=== PATIENT | female | born 2005 ===

== ENCOUNTER 2023-04-29 22:29 | Observation (INO) | payer OTHER ==
[~2023-04-29] VITALS: Ht 154.9 cm; Wt 79.4 kg
[2023-04-29] MEDS ORDERED: PREN-96 PO (23:58)
[2023-04-29] MEDS ORDERED: LYSI600T PO (23:59)
== END 2023-04-30 00:12 | disposition home or self-care (01) ==
LOC: LDRP 22:29
PROVIDERS: ADMIT Obstetrics & Gynecology; ATTEND Obstetrics & Gynecology
DX: O36.8130 Decreased fetal movements, third trimester, not applicable or unspecified (principal); O26.893 Other specified pregnancy related conditions, third trimester; N89.8 Other specified noninflammatory disorders of vagina; Z3A.39 39 weeks gestation of pregnancy
CPT/HCPCS: 59025; 76818; 81002; G0378

== ENCOUNTER 2023-05-05 04:49 | Inpatient (IN) | payer OTHER ==
[~2023-05-05] VITALS: Ht 154.9 cm; Wt 80.3 kg
[~2023-05-05 04:49] MED LIST: LYSI600T PO; PREN-96 PO
[2023-05-05] MEDS ORDERED: PROMETHAZINE HCL 25 MG/ML 1ML IV PRN (05:15)
[2023-05-05] MEDS ORDERED: WITCH HAZEL-GLYCERIN PAD TOP PRN (05:15)
[2023-05-05] MEDS ORDERED: PROMETHAZINE HCL 25 MG/ML 1ML IM PRN (05:15)
[2023-05-05] MEDS ORDERED: LIDOCAINE 2%HCL (LOCAL ANESTH.) INJ 20ML MDV IJ PRN (05:15)
[2023-05-05] MEDS ORDERED: DERMOPLAST 60ML BOTTLE TOP PRN (05:15)
[2023-05-05] MEDS ORDERED: PHISODERM TOP SOLN 240ML BTL TOP PRN (05:15)
[2023-05-05 06:03] LABS: Basophils # (auto) 0 10 ^3/uL (0-0.2); Basophils % (auto) 0.2 % (0.0-2.0); Eosinophils # (auto) 0.1 10 ^3/uL (0-0.8); Eosinophils % (auto) 1.1 % (0.0-7.0); Hematocrit 35.3 % (36.0-46.0); Hemoglobin 11.8 g/dL (12.2-16.2); Lymphocytes # (auto) 3.1 10 ^3/uL (0.4-5.4); Lymphocytes % (auto) 27.3 % (10.0-50.0); Mean Corpuscular Hgb Conc. 33.4 g/dL (32.0-36.0); Mean Corpuscular Volume 89.9 fL (80.0-100.0); Monocytes # (auto) 0.9 10 ^3/uL (0-1.3); Monocytes % (auto) 8.2 % (0.0-12.0); Neutrophils # (auto) 7.3 10 ^3/uL (1.6-8.6); Neutrophils % (auto) 63.2 % (37.0-80.0); Nucleated Red Blood Cells % 0.1 %; Red Blood Cells 3.93 10^6/uL (4.0-5.20); Red Cell Distribution Width 13.7 % (11.8-14.3); White Blood Cell 11.5 10^3/uL (4.4-10.8)
[2023-05-05 06:13] LABS: Urine Bacteria FEW /hpf (None Seen); Urine Blood Negative /uL (Negative); Urine Clarity Clear (Clear); Urine Color Colorless (Yellow); Urine Hyaline Cast FEW /lpf (0 - 2); Urine Protein, UAD Negative (Negative); Urine Specific Gravity 1.008 (1.001-1.035); Urine Urobilinogen Normal (Negative); Urine WBC 1 /hpf (0 - 5); Urine pH 6.5 (5.0-8.0)
[2023-05-05 06:25] LABS: Amphetamine Screen, Urine Neg (NEGATIVE); Barbiturate Scree,Urine Neg (NEGATIVE); Benzodiazephine Screen, Urine Neg (NEGATIVE)
[2023-05-05 06:26] LABS: Cannabinoid Screen, Urine Neg (NEGATIVE); Cocaine Screen, Urine Neg (NEGATIVE); Opiate Scree,Urine Neg (NEGATIVE); Phencyclidine Screen, Urine Neg (NEGATIVE)
[2023-05-05 06:27] LABS: INR 0.88 (0.9-1.15); Prothrombin Time 9.3 sec (9.3-11.8)
[2023-05-05 06:28] LABS: Alanine Aminotransferase 10 U/L (7-40); Albumin 3.8 g/dL (3.2-4.8); Alkaline Phosphatase 224 U/L (46-116); Anion Gap 7 (5-15); Aspartate Aminotransferase 13 U/L (13-40); Bilirubin, Total 0.4 mg/dL (0.2-1.0); Blood Urea Nitrogen 7 mg/dL (9-23); Calcium 9.2 mg/dL (8.7-10.4); Carbon Dioxide 25 mmol/L (20-30); Chloride 104 mmol/L (98-107); Glucose 106 mg/dL (74-106); Potassium 3.7 mmol/L (3.5-5.1); Sodium 136 mmol/L (136-145); Total Protein 6.1 g/dL (5.7-8.2)
[2023-05-05] MEDS: miSOPROStol 50 MCG per PRE-CUT 1/2 TAB PO PRN ×3 (07:18→15:25)
[2023-05-05] MEDS: LACTATED RINGER'S 1,000 ML IV SCH ×4 (07:20→23:10)
[2023-05-05] MEDS ORDERED: NALOXONE HCL 0.4 MG/ML VIAL IV ONE (18:15)
[2023-05-05] MEDS ORDERED: ePHEDrine SULFATE 50 MG/ML AMP IV ONE (18:15)
[2023-05-05] MEDS ORDERED: ROPIVACAINE HCL 100 ML ONE (18:19)
[2023-05-05] MEDS ORDERED: ePHEDrine SULFATE 50 MG/ML AMP ONE (18:42)
[2023-05-05] MEDS ORDERED: LACT. RINGERS/OXYTOCIN 20UNITS 1,000 ML IV SCH (21:00)
[2023-05-05] MEDS ORDERED: TERBUTALINE SULFATE 1 MG/ML 1ML VIAL SC PRN (21:00)
[2023-05-06] MEDS ORDERED: ROPIVACAINE HCL 100 ML ONE (03:42)
[2023-05-06] MEDS ORDERED: ceFAZolin 1GM/50ML 50 ML IV SCH (05:00)
[2023-05-06] MEDS ORDERED: SODIUM CHLORIDE 0.9% 200 ML IUPC ONE (05:45)
[2023-05-06] MEDS ORDERED: SODIUM CHLORIDE 0.9% 1,000 ML IUPC SCH (05:45)
[2023-05-06] MEDS ORDERED: LACT. RINGERS/OXYTOCIN 20UNITS 500 ML IV ONE ×2 (07:00→07:30)
[2023-05-06 07:08] LABS: RPR Non Reactive (Non Reactive)
[2023-05-06] MEDS ORDERED: MINERAL OIL TOPICAL 10ml TOP ONE ×2 (07:19→07:20)
[2023-05-06] MEDS ORDERED: METHYLERGONOVINE MALEATE 0.2 MG/ML AMP IM ONE (08:21)
[2023-05-06] MEDS ORDERED: ONDANSETRON ODT 4 MG TAB PO PRN (09:15)
[2023-05-06] MEDS ORDERED: ACETAMINOPHEN 325 MG TAB PO PRN (09:15)
[2023-05-06 10:30] VITALS: RESP 16; O2SAT 99
[2023-05-06] MEDS: IBUPROFEN 600 MG TAB PO PRN ×2 (10:38→18:31)
[2023-05-06 11:03] VITALS: BP 111/66; PULSE 89; TEMP 98.3; O2SAT 99
[2023-05-06 14:54] VITALS: BP 114/53; PULSE 99; RESP 16; TEMP 98.1; O2SAT 99
[2023-05-06 19:00] VITALS: BP 109/63; PULSE 100; RESP 20; TEMP 98
[2023-05-06] MEDS ORDERED: DOCUSATE SOD 100 MG CAP PO SCH (22:00)
[2023-05-06 23:30] VITALS: BP 110/59; PULSE 102; RESP 20; TEMP 98.3
[2023-05-07 03:16] VITALS: BP 118/59; PULSE 99; RESP 16; TEMP 98.3
[2023-05-07 06:54] VITALS: BP 102/54; PULSE 93; RESP 16; TEMP 98.3
[2023-05-07 07:15] LABS: Basophils # (auto) 0 10 ^3/uL (0-0.2); Basophils % (auto) 0.2 % (0.0-2.0); Eosinophils # (auto) 0.1 10 ^3/uL (0-0.8); Eosinophils % (auto) 0.4 % (0.0-7.0); Hematocrit 28.3 % (36.0-46.0); Hemoglobin 9.4 g/dL (12.2-16.2); Lymphocytes # (auto) 2.9 10 ^3/uL (0.4-5.4); Lymphocytes % (auto) 20.8 % (10.0-50.0); Mean Corpuscular Hemoglobin 30.4 pg (28.0-32.0); Mean Corpuscular Hgb Conc. 33.3 g/dL (32.0-36.0); Mean Corpuscular Volume 91.1 fL (80.0-100.0); Monocytes # (auto) 0.9 10 ^3/uL (0-1.3); Monocytes % (auto) 6.6 % (0.0-12.0); White Blood Cell 13.8 10^3/uL (4.4-10.8)
[2023-05-07 11:27] VITALS: BP 110/61; PULSE 100; RESP 16; TEMP 97.8
[2023-05-07] MEDS ORDERED: DOCU-265 PO (12:47)
[2023-05-07] MEDS ORDERED: IBU600T PO (12:47)
[2023-05-07] MEDS ORDERED: FERR30CA PO (12:47)
[2023-05-08 19:07] LABS: Treponema pallidum Ab (FTA-Ab) Non Reactive (Non Reactive)
== END 2023-05-07 11:58 | disposition home or self-care (01) | DRG 807 ==
LOC: LDRP 04:49
PROVIDERS: ADMIT Obstetrics & Gynecology; ATTEND Obstetrics & Gynecology
PROC: 3E0P7VZ Introduction of Hormone into Female Reproductive, Via Natural or Artificial Opening (ICD-10-PCS; 2023-05-05)
PROC: 10E0XZZ Delivery of Products of Conception, External Approach (ICD-10-PCS; principal; 2023-05-06)
PROC: 10907ZC Drainage of Amniotic Fluid, Therapeutic from Products of Conception, Via Natural or Artificial Opening (ICD-10-PCS; 2023-05-06)
PROC: 10H07YZ Insertion of Other Device into Products of Conception, Via Natural or Artificial Opening (ICD-10-PCS; 2023-05-06)
PROC: 0HQ9XZZ Repair Perineum Skin, External Approach (ICD-10-PCS; 2023-05-06)
PROC: 3E0R3BZ Introduction of Anesthetic Agent into Spinal Canal, Percutaneous Approach (ICD-10-PCS; 2023-05-06)
PROC: 00HU33Z Insertion of Infusion Device into Spinal Canal, Percutaneous Approach (ICD-10-PCS; 2023-05-06)
DX: O48.0 Post-term pregnancy (principal); Z37.0 Single live birth; Z3A.40 40 weeks gestation of pregnancy; O77.0 Labor and delivery complicated by meconium in amniotic fluid; O70.0 First degree perineal laceration during delivery
CPT/HCPCS: 36415; 59025; 59409; 62282; 80053; 80307; 81001; 85025; 85610; 85730; 86592; 86850; 86900; 86901; 94760; 94762; 96360; 96361; 96365; 96366; 96372; G0378; J0690; J2590